=== PATIENT | female | born 1945 | race Caucasian/White ===

== ENCOUNTER 2023-02-28 16:39 | Emergency (ER) | payer BC, OTHER ==
[~2023-02-28] VITALS: Ht 149.9 cm; Wt 53.5 kg
[2023-02-28 17:14] VITALS: BP_SYST 125; PULSE 79; RESP 18; TEMP 97.9; O2SAT 98
[2023-02-28] MEDS ORDERED: DIPHENHYDRAMINE INJ 50 MG/ML VIAL IVP ONE (20:00)
[2023-02-28] MEDS ORDERED: PROCHLORPERAZINE EDISYLATE 10 MG/2 ML VIAL IVP ONE (20:00)
[2023-02-28] MEDS ORDERED: BUTA1CAP43 PO ×3 (21:32→21:45)
[2023-02-28 21:45] VITALS: BP_SYST 156; PULSE 80; RESP 17; O2SAT 97
== END 2023-02-28 21:46 | disposition home or self-care (01) ==
LOC: SED 16:39
DX: R51.9 Headache, unspecified (principal); M54.2 Cervicalgia; R11.0 Nausea; I10 Essential (primary) hypertension; Z79.899 Other long term (current) drug therapy
CPT/HCPCS: 99285; 96374; 70450; 96375; 76376; J1200; J0780